=== PATIENT | female | born 1965 | race Caucasian/White ===

== ENCOUNTER 2024-07-17 16:08 | Outpatient (CLI) | payer BC, SELFPAY | END 2024-07-17 16:09 | disposition home or self-care (01) | LOC: NFLDREF 07-21 18:22 | PROVIDERS: Visit Provider Nurse Practitioner Family | DX: N39.0 Urinary tract infection, site not specified (principal); B96.20 Unspecified Escherichia coli [E. coli] as the cause of diseases classified elsewhere | CPT/HCPCS: 87086; 87186 ==